=== PATIENT | female | born 1940 | race Caucasian/White ===

== ENCOUNTER 2018-08-05 10:31 | Inpatient (IN) | payer MEDICARE, BC ==
[~2018-08-05] VITALS: Ht 172.7 cm; Wt 81.6 kg
[2018-08-05 11:55] VITALS: BP 145/61; PULSE 62; TEMP 97.6
[2018-08-05] MEDS ORDERED: DECADRON 4MG TAB4 MG PO (14:07)
[2018-08-05] MEDS ORDERED: KEPPRA SUSP100 MG/ML PO (15:26)
[2018-08-05] MEDS ORDERED: ZYLOPRIM 100MG100 MG PO (15:27)
[2018-08-05] MEDS ORDERED: ROXICODONE 55 MG/TAB PO (15:27)
[2018-08-05] MEDS ORDERED: PROZAC 20MG20 MG PO (15:28)
[2018-08-05] MEDS ORDERED: COLACE 100100 MG/CAP PO (15:28)
[2018-08-05] MEDS ORDERED: NORVASC 10MG10 MG PO (15:28)
[2018-08-05] MEDS ORDERED: NOVOLOG FLEX100 U/ML SQ (15:29)
[2018-08-05] MEDS ORDERED: LANTUS SOLOS100 U/ML SQ (15:31)
[2018-08-05] MEDS ORDERED: MICRO-K 10 EXT10 MEQ PO (15:34)
[2018-08-05] MEDS ORDERED: PRAVACHOL 40MG40 MG PO (15:35)
[2018-08-05 17:58] VITALS: BP 136/53; PULSE 58; TEMP 97.6
--- NOTE | 2018-08-05 20:00 | NUR ---
Patient in chair resting, Alert and oriented x3. Shift assessment complete. Incision to left scalp with bridget intact and edges well approximated. Denies pain at this time. Assisted patient to restroom, x1 assist with walker. Steady gait. SCDs to bilateral lower extremities. Denies further needs at this time.
--- NOTE | 2018-08-05 20:16 | NUR ---
Pt admitted to [facility] from [facility] via wheelchair, daughter Anca downing. Pt alert, pleasant, cooperative, conversive, does have short term memory deficits since onset of hospitalization. Pt's left scalp incision has large amount of dry scab build-up. Pt may get incision wet in shower tomorrow, informed OT. Pt amb with gait belt, FWW, and min assist. Pt participated in therapies all afternoon. Good appetite. Bedside report to DOUGIE Sanchez.
--- NOTE | 2018-08-06 02:31 | NUR ---
Educated patient on using call light when she needs to use the restroom. Bed alarm on, call light in reach.
[2018-08-06 06:04] VITALS: BP 136/61; PULSE 57; TEMP 97.9
--- NOTE | 2018-08-06 06:28 | NUR ---
Patient has rested well through the night, has been up multiple times this AM to restroom. Stand by assist with walker, steady gait. Patient occassionaly forgetful to use call light when needing to get out of bed. Reminded patient as needed, bed alarm on. SCDs maintained to BLE through the night. Patient continues to deny pain. Cortez to left scalp maintain intact. Denies further needs at this time. Will report off to day shift.
--- NOTE | 2018-08-06 07:28 | NUR ---
SCDs off as pt OOB to chair for breakfast, incision scabbed with bridget intact. Call light in reach, chair alarm on, breakfast on tray. Denies any needs now.
--- NOTE | 2018-08-06 08:22 | NUR ---
Daughter Anca downing.
--- NOTE | 2018-08-06 12:57 | NUR ---
Enc pt to rest as she states she was fatigued after morning therapies. In bed with head elevated, Anca downing.
--- NOTE | 2018-08-06 16:35 | NUR ---
SCDs off as pt to chair for supper.
[2018-08-06 16:56] VITALS: BP 139/58; PULSE 65; TEMP 98.4
--- NOTE | 2018-08-06 20:00 | NUR ---
HS meds all reviewed and given. Patient denies pain at this time. Is standby back from BSC and is up frequently to void with bed alarm alarming. Patient refused HS levemir due to accu check of 82. Took snack of pudding.
--- NOTE | 2018-08-06 20:11 | NUR ---
Enc pt to use call light for toileting at night, brought BSC near bed and walker and call light in reach, SCDs in place. Report to DOUGIE Sams.
--- NOTE | 2018-08-07 01:40 | NUR ---
Patient was up to BSC and voids. Rests self back in bed. Denies needs.
--- NOTE | 2018-08-07 02:31 | NUR ---
Patient rests with eyes closed. Respirations with ease.
--- NOTE | 2018-08-07 03:36 | NUR ---
Patient rests in bed with eyes closed. Respirations with ease.
--- NOTE | 2018-08-07 04:35 | NUR ---
PATIENT AWAKE AND WAS UP TO THE BSC TO VOID. RESTS BACK IN BED. DENIES NEEDS. "I'LL SNOOZE FOR AWHILE LONGER".
[2018-08-07 04:36] VITALS: BP 140/54; PULSE 58; TEMP 98
--- NOTE | 2018-08-07 09:55 | NUR ---
Currently working with therapy at this time. Denied pain this morning. Reported that she slept well last night. Was a one CGA with gait belt to bathroom this morning. She wiped herself and pulled pants up on her own. Tolerating diet well this morning eating 100% of her breakfast. Will continue to monitor.
--- NOTE | 2018-08-07 11:59 | NUR ---
Resting in recliner, call light in reach, alarm at her side. Denies pain at this time. Had a shower this morning.
--- NOTE | 2018-08-07 17:00 | NUR ---
SUSANNE met with the patient to complete initial intake. The patient lives alone in [place]. She states that she has a daughter that lives in [place] and another daughter, Anca, that lives in [place]. She reports independence with ADLs and has a cane, walker, transport chair, and a commode. The patient's PCP is Dr. Fermin Gomez and she receives her medications at the [facility] in [place]. She reports no difficulties obtaining her meds. The patient reports that her daughter, Anca, will be staying with her until the middle of next month. SUSANNE then discussed the Team Conference Note with the patient. Tentative discharge date set for, 08/14/18, with recommendations for outpatient PT/ST. The patient reports she is in agreeance with this plan and that she has received outpatient therapy at [facility] in [place] and would prefer them again if they have ST. SUSANNE to contact. SUSANNE then discussed with the patient a family meeting for Sunday, 08/12, at 1300. The patient reports that she will check with her daughter and let SUSANNE know. SUSANNE to follow up with the patient tomorrow.
[2018-08-07 17:41] VITALS: BP 139/63; PULSE 74; TEMP 97.8
--- NOTE | 2018-08-07 19:40 | NUR ---
Patient attended all therapies today. Denied pain this shift. Had a shower and washered her hair, reporting that it felt good. Suture to head is BARI and shows no signs of infection, such as redness or drainage. Will continue to monitor.
--- NOTE | 2018-08-07 20:30 | NUR ---
HS meds all reviewed and given. Accu check 203 and reports she had a pudding earlier. Declines SSI and snack. Talkative and pleasant. Denies pain. Up CGA to the bathroom with walker and gait steady. Denies dizziness. Dressed already in pajamas. Rests self back in bed.
--- NOTE | 2018-08-07 20:37 | NUR ---
Patient was found transferring from recliner to bs this evening, due to staff not being able to get to her in time. Alarm sounded, but patient did not wait for staff. Patient was educated on the need to call for staff when transferring she voiced understanding.
--- NOTE | 2018-08-08 01:44 | NUR ---
Patient rests with eyes closed. Respirations with ease.
[2018-08-08 03:31] VITALS: BP 131/54; PULSE 62; TEMP 98
--- NOTE | 2018-08-08 08:22 | NUR ---
Report from DOUGIE Sams. SCDs off as pt OOB.
--- NOTE | 2018-08-08 14:57 | NUR ---
Awakened pt from napping in bed, she said, "Benji, Nerissa" and when I told her I brought her shot and pill, she replied, "I have more medicine at home." Pt more appropriate on phonecall now.
--- NOTE | 2018-08-08 15:05 | NUR ---
First visit from the tar kettle runner. No needs right now.
--- NOTE | 2018-08-08 16:38 | NUR ---
SCDs off as pt OOB to chair for supper. Incision with bridget intact, dry scabs.
[2018-08-08 18:38] VITALS: BP 110/83; PULSE 68; TEMP 97.9
--- NOTE | 2018-08-08 21:30 | NUR ---
PT CHEERFUL AND TALKATIVE. A&OX4. LT SCALP INCISION BAGGER MEAT WITH ELAINE INTACT. DENIES PAIN. PT C/O URINARY URGENCY. VOIDING W/O DIFFICULTY. STRENGTH EQUALLY STRONG BILAT. ACCUCHECK 158. PT RREFUSES INSULIN TONIGHT. CALL LIGHT IN REACH. BED ALARM SET.
[2018-08-09 05:19] VITALS: BP 135/51; PULSE 61; TEMP 97.5
--- NOTE | 2018-08-09 07:05 | NUR ---
ramos kernort received from DOUGIE Freeman
--- NOTE | 2018-08-09 07:45 | NUR ---
sitting up in chair and has had breakfast and tolerated well, full assessment completed, see interventions for further info, incision to scalp with bridget and intact with dried blood along the edges, denies pain or needs
--- NOTE | 2018-08-09 08:20 | NUR ---
ambulating out in gupta with physical therapy
--- NOTE | 2018-08-09 09:31 | NUR ---
occupational therapy in working with patient
--- NOTE | 2018-08-09 10:30 | NUR ---
in bed and appears to be sleeping, eyes closed, resp quiet and easy
--- NOTE | 2018-08-09 12:42 | NUR ---
ambulating in gupta with physical therapy
--- NOTE | 2018-08-09 13:58 | NUR ---
up in chair, denies needs
--- NOTE | 2018-08-09 14:40 | NUR ---
sitting up on side of bed visiting with her nephew, denies needs
--- NOTE | 2018-08-09 14:44 | NUR ---
SW met with the patient to follow up on a time for the family meeting. The patient's reports that 1300 on Sunday, 08/12, will work for the family meeting and that her daughter, Anca, will be here. SW to continue to follow.
--- NOTE | 2018-08-09 15:34 | NUR ---
resting in bed visiting with friends
[2018-08-09 17:12] VITALS: BP 135/62; PULSE 72; TEMP 98.4
--- NOTE | 2018-08-09 17:45 | NUR ---
remains up in recliner and talking on the phone
--- NOTE | 2018-08-09 18:34 | NUR ---
bedside shift report given to DOUGIE Freeman
[2018-08-09 18:49] LABS: COLLECTION METHOD CLEAN CATCH
[2018-08-09 19:06] LABS: MUCOUS Present /lpf; PH 5 (5-8); SQUAMOUS EPITHELIAL 0-2 /hpf; URINE APPEARANCE Clear; URINE BACTERIA None Seen /hpf; URINE BILIRUBIN Negative (NEGATIVE); URINE BLOOD Negative (NEGATIVE); URINE COLOR Yellow; URINE GLUCOSE Negative (NEGATIVE); URINE KETONE Negative (NEGATIVE); URINE LEUKOCYTE ESTERASE Negative (NEGATIVE); URINE NITRATE Negative (NEGATIVE); URINE PROTEIN(semi-quant) Negative (NEGATIVE); URINE RBC 0-2 /hpf; URINE UROBILINOGEN Negative (NEGATIVE)
--- NOTE | 2018-08-09 21:00 | NUR ---
PT MOD I IN ROOM WITH WALKER. PT TALKATIVE AND CHEERFUL. NO ISSUES VERBALIZED. UA SENT DOWN TO LAB EARLIER. DENIES PAIN. FEELS STEADY. ENC PT TO CALL N=IF FEELING UNSTEADY.
[2018-08-10 05:18] VITALS: BP 135/45; PULSE 69; TEMP 98.2
--- NOTE | 2018-08-10 08:00 | NUR ---
PATIENT IS UP TO THE CHAIR THIS MORNING. PATIENT IS A&O. VSS. BOWEL SOUNDS ACTIVE ALL FOUR QUADRANTS. PATIENT TOLERATING FOOD & LIQUIDS WITHOUT ANY COMPLAINTS OF N/V. POSITIVE PEDAL PULSES EQUAL BILATERALLY. 1+ PITTING EDEMA TO FEET NOTED BILATERALLY. LEFT SCALP INCISION AMUSEMENT OR RECREATION CARD CHECKER WITH ELAINE INTACT AND EDGES WELL APPROXIMATED. PATIENT DENIES ANY PAIN AT THIS TIME. CALL LIGHT WITHIN REACH. BREAKFAST TRAY AT THE BEDSIDE. NO OTHER NEEDS AT THIS TIME.
--- NOTE | 2018-08-10 16:45 | NUR ---
PATIENT REQUESTED A LAXATIVE. PATIENT GIVEN A PRN DOSE OF MIRALAX.
[2018-08-10 18:00] VITALS: BP 144/66; PULSE 74; TEMP 98.1
--- NOTE | 2018-08-11 02:18 | NUR ---
THE PT WAS UP IN HER BATHROOM INITIAL ROUNDS WERE MADE, STATED THAT SHE IS HAVING A BM. IT WAS A MED SF THIRD ONE OF THE DAY, BUT THE PT EMPHAZIZED THAT SHE STILL WANTED THE STOOL SOFTENER TONIGHT. GIVEN. SHE DENIED PAIN. HAD A PUDDING FOR HS SNACK. APPEARS TO GET ADEQUATE SLEEP. SHE IS UP MODIFIED INDEPENDENT IN HER ROOM WITHOUT DIFFICULTY.
[2018-08-11 03:37] VITALS: BP 123/48; PULSE 56; TEMP 97.5
--- NOTE | 2018-08-11 04:29 | NUR ---
THE PT WAS BEDRESTING WITH EYES CLOSED, RESP EVEN. NO C\O PAIN OR PROBLEM, VSS.
--- NOTE | 2018-08-11 06:14 | NUR ---
THE PT'S ACCUCHECK THIS AM IS 119, SHE HAS NO OTHER LABS DUE THIS AM, SHE APPEARS TO HAVE GOTTENADEQUATE SLEEP TONIGHT.
--- NOTE | 2018-08-11 08:52 | NUR ---
Assessment complete.patient awake,alert and orientedx4.denies pain or discomfort at this time.LSCTA.breathing even and unlabored.patient ambulates independently in room with walker.all meds given.bridget to head are CDI.no other concerns voiced at this time.will continue to monitor.call light in reach
[2018-08-11 15:40] VITALS: BP 135/48; PULSE 71; TEMP 98.5
--- NOTE | 2018-08-11 17:38 | NUR ---
PATIENT HAS FAMILY AT BEDSIDE AT THIS TIME.PT HAS HAD AN UNEVENFUL DAY.DENIES ANY PAIN OR DISCOMFORT.ALL MEDS GIVEN.PATIENT TOOK A SHOWER WITH NO ASSISTANCE.PATIENT DENIES FURTHER NEEDS AT THIS TIME.CALL LIGHT IN REACH
--- NOTE | 2018-08-11 21:00 | NUR ---
PT RESTING IN RECLINER. PLEASANT AND COOPERATIVE. MOD I IN ROOM W WALKER. DENIES PAIN AT THIS TIME. DENIES NEEDS AT THIS TIME.
[2018-08-12 05:05] VITALS: BP 134/58; PULSE 67; TEMP 98.2
--- NOTE | 2018-08-12 08:36 | NUR ---
Report from DOUGIE Freeman. Pt jori Mod I in rm with 4WW, or cane. Pt ate breakfast in bed, glasses in place, toileted, denies pain. Incision CDI with bridget intact to left scalp. Gripper socks in place. Pt A&O, conversive.
--- NOTE | 2018-08-12 11:56 | NUR ---
Pt to cafeteria with family for lunch.
--- NOTE | 2018-08-12 13:19 | NUR ---
SUSANNE met with team and family for a family meeting. SW introduced herself and the reason for the family meeting. OT Chaparrita discussed patients progress with her ADLs and that she is not recommending outpatient OT since patient is doing so well. ST is gone today so Chaparrita also updated family on patients progress with speech and the recommendation for outpatient ST. PT Rylan discussed patients progress and discussed what assistive device she would like to use when she discharges. He feels she will be fine in the home however would like her to use her cane or walker when she goes out. Patient would like to use [facility] for her outpatient therapy but doesnt know if they have Speech. SW will check with them to see if they offer it. Family asked if patient could have her bridget removed prior to dc sun rather than go all the way to [facility] on sunday when the appointment is scheduled. This will be discussed with dr quezada. Patient to discharge home on Sun08/14/18
--- NOTE | 2018-08-12 14:44 | NUR ---
SUSANNE called [facility] who reports they do not do ST. SUSANNE met with patient and daughter who report they would rather do all of the therapy at the hospital so they dont have to go to two different places. SUSANNE called [facility] who would like discharge orders and referral faxed to [phone] and they will call the daughter/patient to set up a time. SUSANNE informed nurse of this information.
[2018-08-12 15:10] VITALS: BP 138/60; PULSE 71; TEMP 98.3
--- NOTE | 2018-08-12 17:21 | NUR ---
SCDs off as pt OOB and Mod I in rm w/ walker or cane
--- NOTE | 2018-08-12 18:19 | NUR ---
Pt was incontinent of urine, she changed her own clothes, requested more pull ups. Pt asked this nurse to put her socks on for her, enc pt to try as she is going home soon and needs to practice ADLs.
--- NOTE | 2018-08-13 01:20 | NUR ---
THE PT WAS SITTING UP IN HER RECLINER THE SHIFT BEGAN, VERY TALKATIVE, RELAYS THE SAME STORIES SHE TOLD ME LAST WEEK. ADDED MORE RECENT THINGS THOUGH, PLEASANT. ON DECADRON ENCOURAGED HER TO HAVE A SNACK WITH IT, STATED THAT SHE HAD JUST HAD A FEW PIECES OF CANDY THAT HER DAUGHTER BROUGHT IN FOR HER. ACCUCHECK WAS 142, NO S\S COVERAGE. APPEARS TO GET ADEQUATE SLEEP. THE PT IS UP MODIFIED INDEPENDENT IN ROOM WITH HER WALKER.
--- NOTE | 2018-08-13 03:16 | NUR ---
THE PT WAS OBSERVED TO BE GETTING UP TO THE BR A FEW TIMES, GOOD ATTENTION TO SAFETY AND SURROUNDINGS. THE PT IS MODIFIED INDEPENDENT IN THE ROOM WITH HER WALKER, WITHOUT DIFFICULTY.
[2018-08-13 03:57] VITALS: BP 151/67; PULSE 70; TEMP 98
--- NOTE | 2018-08-13 08:04 | NUR ---
Patient resting in recliner at this time, call light in reach and chair alarm is on. Patient in pleasent mood this morning. Denies pain at this time.
[2018-08-13 10:00] VITALS: BP 131/53; PULSE 73; TEMP 97.5
[2018-08-13] MEDS ORDERED: TYLENOL 325MG325 MG PO (12:59)
[2018-08-13 17:20] VITALS: BP 140/63; PULSE 70; TEMP 98.1
--- NOTE | 2018-08-13 17:27 | NUR ---
Patient drank her Glycerna later this afternoon so blood sugar was high due to this. She reported that she would wait until her daughter arrives to eat her supper and would wait to have blood sugar checked again prior to eating. Will continue to monitor.
--- NOTE | 2018-08-14 02:53 | NUR ---
THE PT WAS UP IN THE BR THE SHIFT BEGAN. BACK TO THE ROOM LATER, SHE WAS AT THE SINK DOING HER HS CARES. SHE WENT TO THE RECLINER SO ASSESSMENT AND ACCUCHECK COULD BE DONE. ACCUCHECK WAS 134, NO S\S BUT GOT SCHEDLULED LEVEMIR. SHE CHOSE ICE CREAM WITH GRAHAMS FOR HS SNACK. SHE WAS NOTED TO BE BEDRESTING WITH EYES CLOSED A WHILE LATER. SHE APPEARS TO GET ADEQUATE SLEEP.
--- NOTE | 2018-08-14 03:22 | NUR ---
THE PT IS BEDRESTING WITH EYES CLOSED, RESP EVEN
[2018-08-14 06:24] VITALS: BP 132/59; PULSE 62; TEMP 97.9
[2018-08-14 07:50] LABS: CALCIUM 9.4 mg/dL (8.4-10.2); CREATININE, serum 1.17 mg/dL (0.52-1.25); MAGNESIUM 2.1 mg/dL (1.6-2.3)
--- NOTE | 2018-08-14 08:06 | NUR ---
Patient resting this morning in her recliner eating her breakfast and is independent in her room using her walker. Patient in pleasent mood and will be looking at discharge later this afternoon. Denies pain this morning.
[2018-08-14] MEDS ORDERED: DECADRON 1MG TAB1 MG PO (08:23)
[2018-08-14] MEDS ORDERED: NOVLOG SQ ×2 (08:32)
--- NOTE | 2018-08-14 13:20 | NUR ---
SW met with patient and daughter to present IM and verbally discuss the contents. Patient was agreeable and signed the form. She denied a copy and the original was placed in the chart. Patient is discharging home today. Her daughter will be with her for some time. Out patient PT and ST will be at [facility]. No other needs at this time.
--- NOTE | 2018-08-14 15:10 | NUR ---
Patient health summary, discharge summary, and home meds printed and reviewed with patient and daughter. Stressed importance of follow up appointments, with daughter stating that she changed a few appointments around. Instead of taking patient to Neurosurgeon in she is going to see Dr. Arredondo this Sunday at 11:00 AM. She cancelled the appointment with neurosugeon in . She changed her appointment set for 08/30/18 in with neurosurgeon to 09/06/18 at 12:30 PM. Reviewed medications, including times to be given, the high sliding scale insulin chart (patient given a copy of this). Reviewed the need to check blood sugars prior to every meal and to use HSSI chart as well as scheduled insulin per medication list. They both voiced understanding. Called prescriptions for the following to [facility] in [place], [place]: Dexamethasone and Keppra, their preferred pharmacy of choice, instead of the [facility] in [place], [place]. Belongings were gathered by daughter and RN/Ashley including bilateral hearing aids, platform walker, glasses, purse and wrist watch. Patient transported via wheelchair by RN/Ashley and seatbelted for ride home to [place] by daughter. Patient and daughter denied questions.
== END 2018-08-14 15:10 | disposition home or self-care (01) | DRG 948 ==
PROVIDERS: ADMIT Internal Medicine
DX: R53.81 Other malaise (principal); R47.01 Aphasia; Z66 Do not resuscitate; R47.1 Dysarthria and anarthria; R13.10 Dysphagia, unspecified; D32.0 Benign neoplasm of cerebral meninges; E11.65 Type 2 diabetes mellitus with hyperglycemia; I10 Essential (primary) hypertension; Z79.4 Long term (current) use of insulin; E78.5 Hyperlipidemia, unspecified; R32 Unspecified urinary incontinence; M47.9 Spondylosis, unspecified; D64.9 Anemia, unspecified; I48.91 Unspecified atrial fibrillation; F32.9 Major depressive disorder, single episode, unspecified
CPT/HCPCS: 99222-AI; 99231-AI; 99232-AI; 99239; J1644; J1815; J8540